=== PATIENT | female | born 1980 | race African-American/Black ===

== ENCOUNTER 2020-04-22 19:01 | Emergency (ER) | payer OTHER ==
[~2020-04-22] VITALS: Ht 182.9 cm; Wt 95.3 kg
--- NOTE | 2020-04-22 19:14 | Emergency Room Report ---
History of Present Illness General Chief Complaint: Vaginal Source: Patient Present Illness HPI Patient is a 39-year-old fema who presents for 5 days of left-sided genital pain and swelling. Reports having recent onset of bleeding. Denies being . Denies any prior history of sexual transmitted disease. States this began after shaving with a razor. Reports having increased drainage. Denies any prior history of diabetes. Allergies: Coded Allergies: No Known Allergies (Unverified , 04/22/20) COVID-19 Screening Contact w/high risk pt: No Experienced COVID-19 symptoms?: No COVID-19 Testing performed [employer]OR: No Patient History Past Medical History: see triage record Last Menstrual Period: NA on jennifer Now: No Reviewed Nursing Documentation: PMH: Agreed; PSxH: Agreed Nursing Documentation-PMH Past Medical History: No Stated History Review of Systems All Other Systems: negative except mentioned in HPI Physical Exam Vital Signs Date Time Temp Pulse Resp B/P (MAP) Pulse Ox O2 Delivery O2 Flow Rate FiO2 04/22/20 19:04 98.2 131 18 169/100 (123) 98 Room Air Sp02 EP Interpretation: reviewed, normal General Appearance: normal inspection, well appearing, no apparent distress, alert, GCS 15, obese Head: atraumatic ENT: normal ENT inspection, hearing grossly normal, normal voice Neck: normal inspection, full range of motion, supple, no bony tend Respiratory: normal inspection, lungs clear, normal breath sounds, no respiratory distress, no retraction, no wheezing Cardiovascular #1: regular rate, rhythm, no edema Gastrointestinal: normal inspection, normal bowel sounds, non tender, soft, no guarding, no hernia Genitourinary: no CVA tenderness Musculoskeletal: normal inspection, back normal, normal range of motion Neurologic: alert, motor strength/tone normal, smelter liner III-XII nml as tested, oriented x3, responsive, speech normal, normal inspection Psychiatric: normal inspection, judgement/insight normal, mood/affect normal Medical Decision Making Diagnostic Impression: Primary Impression: Vulvar ulcer ER Course Patient presented for increased vaginal discharge. Differential diagnosis include was not limited to gonorrhea, folliculitis, chlamydia, Donovanosis, chancroid among others. Patient was noted to have an overall benign exam. She was advised to have outpatient STD testing. She was given Rocephin IM as well as Diflucan. Appears to be some evidence of yeast infection. Last Vital Signs Date Time Temp Pulse Resp B/P (MAP) Pulse Ox O2 Delivery O2 Flow Rate FiO2 04/22/20 19:04 98.2 131 18 169/100 (123) 98 Room Air Tin Walton MD Apr 22, 2020 19:14
[2020-04-22 19:20] VITALS: BP 169/100
[2020-04-22] MEDS ORDERED: Fluconazole 150mg tab ORAL ONE (19:45)
[2020-04-22] MEDS ORDERED: Lidocaine 1% MPF 10mg/ml 5ml INJ ONE (19:45)
[2020-04-22] MEDS ORDERED: DOXYCYCLINE MO100 MG ORAL (19:59)
[2020-04-22 20:20] VITALS: BP 140/95
== END 2020-04-22 20:20 | disposition home or self-care (01) ==
LOC: EMR 19:40
DX: N76.5 Ulceration of vagina (principal); E66.9 Obesity, unspecified; B37.9 Candidiasis, unspecified; Z68.28 Body mass index [BMI] 28.0-28.9, adult
CPT/HCPCS: 81025; 96372; 96374; 99284; J0696